=== PATIENT | female | born 1975 | race Asian ===

== ENCOUNTER 2017-12-07 19:56 | Emergency (ER) | payer MEDICAID, OTHER ==
[~2017-12-07] VITALS: Ht 149.9 cm; Wt 48.3 kg
[2017-12-07 20:01] VITALS: BP 149/98
[2017-12-07] MEDS ORDERED: HYDR-565 PO (21:18)
[2017-12-07] MEDS ORDERED: PENI250T2 PO (21:18)
== END 2017-12-07 21:56 | disposition home or self-care (01) ==
LOC: ER 19:57
DX: K04.7 Periapical abscess without sinus (principal); K02.9 Dental caries, unspecified; Z79.899 Other long term (current) drug therapy
CPT/HCPCS: 99283